=== PATIENT | male | born 1970 | race Caucasian/White ===

== ENCOUNTER 2018-06-22 20:54 | Emergency (ER) | payer OTHER ==
[2018-06-22 21:00] VITALS: BP 159/107
--- NOTE | 2018-06-22 21:14 | EDPHY ---
H & P Time Seen by Provider: 06/22/18 21:08 HPI/ROS: CHIEF COMPLAINT: Laceration left hand 5th metacarpal HISTORY OF PRESENT ILLNESS: 47-year-old [id number] male was cutting watermelon when he sustained accidental laceration to left hand location of 5th metacarpal palmar-ulnar aspect when he was cutting watermelon the knife slipped. PHYSICAL EXAM (Prior to examination, patient consented to physical exam, hands were washed and my usual and customary physical exam procedures followed) 1) GENERAL: Well-developed, well-nourished, alert and oriented. Appears to be in no acute distress. 2) HEAD: Normocephalic 3) HEENT: sclera anicteric 4) LUNGS: Breathing comfortably. 5) SKIN: Left hand at the 5th metacarpal palmar-ulnar aspect 2.5 cm linear laceration. No signs of infection. 6) MUSCULOSKELETAL: FDP, FDS intact. 7) NEUROLOGIC: Two-point discrimination intact distally Smoking Status: Never smoked Constitutional: Initial Vital Signs Temperature (C) 36.5 C 06/22/18 20:57 Heart Rate 74 06/22/18 20:57 Respiratory Rate 16 06/22/18 20:57 Blood Pressure 159/107 H 06/22/18 20:57 O2 Sat (%) 97 06/22/18 20:57 O2 Delivery Mode Room Air Allergies/Adverse Reactions: amoxicillin Allergy (Verified 06/22/18 21:00) Home Medications: Medication Instructions Recorded Steriod Topical Cream 06/22/18 MDM/Departure - [facility] Procedures: Procedure: Laceration repair. I explained the indications, risks and benefits for both laceration repair and anesthetic administration. Verbal consent was obtained from the patient. The laceration on the left hand was anesthetized using 0.5% bupivicaine without epinephrine. After anesthetic administered the patient was observed for a period of time and had no apparent adverse effects. The wound was cleaned, prepped, draped in normal sterile fashion and explored to its base. No foreign body seen, no foreign bodies palpated. There were no deep structures involved. No tendon injury was identified. The wound was repaired with 5 simple interrupted 5 O Prolene sutures. The wound repair was simple. The procedure was performed by myself. Patient has been informed that scarring will occur, although efforts have been made to minimize this. ED Course/Re-evaluation: Care of patient under supervision of secondary supervising physician Dr Hugo Espitia. - Depart Disposition: Home, Routine, Self-Care Clinical Impression: Laceration of left hand Qualifiers: Encounter type: initial encounter Foreign body presence: with foreign body Qualified Code(s): S61.422A - Laceration with foreign body of left hand, initial encounter Condition: Good Instructions: Laceration (ED) Additional Instructions: Return to the ER if you develop redness, swelling, discharge, warmth to the wound, red streaks going up your arm, or any other symptoms that concern you. Referrals: Return, to the ER in 10 days for suture removal [Other] - As per Instructions
== END 2018-06-22 21:54 | disposition home or self-care (01) ==
PROC: 0HQGXZZ Repair Left Hand Skin, External Approach (ICD-10-PCS; principal; 2018-06-22)
DX: S61.422A Laceration with foreign body of left hand, initial encounter (principal); W26.0XXA Contact with knife, initial encounter; Y93.G1 Activity, food preparation and clean up